=== PATIENT | male | born 1950 | race Caucasian/White ===

== ENCOUNTER 2017-09-09 08:20 | Outpatient (CLI) | payer MEDICARE ==
--- NOTE | 2017-09-09 11:21 | CT ---
CT OF HEAD WITH AND WITHOUT CONTRAST: INDICATION: Benign positional vertigo. FINDINGS: There is postoperative change involving the occiput with evidence of suboccipital craniectomy. There is encephalomalacia in the left frontal lobe. Ex vacuo dilatation of the ventricular system is pres ent. No intracranial hemorrhage or midline shift. There is no enhancing intraaxial mass. There is extraaxial dystrophic calcification overlying the inferolateral left frontal lobe. IMPRESSION: 1. No acute intracranial abnormality. 2. Postoperative change and encephalomalacia. Prominence of ventricular system is present which lik erma relates to ex vacuo dilatation given concomitant findings. 3. Dystrophic calcification, extraaxial in appearance overlying the lateral aspect of the inferior l eft frontal lobe. This could relate to partial calcification of a meningioma. POS: [place]
--- NOTE | 2017-09-09 11:23 | ULT ---
CAROTID DUPLEX SONOGRAM: History: Vascular disease. Dizziness. TIA. Carotid bruit. FINDINGS: Right: Minimal plaque. Color and spectral doppler evaluation, peak systolic velocity of 79 cm/sec and IC to CC ratio of 0.6 suggests no hemodynamically significant stenosis within the extracranial right ICA. Antegrade flow within the vertebral arteries. Left: Color and spectral doppler evaluation, peak systolic velocity of 65 cm/sec, and IC to CC ratio of 0.6 suggests no hemodynamically significant stenosis within the extracranial left ICA. Antegrade f low within the vertebral artery. IMPRESSION: Mild atherosclerosis. No sonographic evidence of significant extracranial ICA stenosis. POS: [facility]
== END 2017-09-09 08:21 | disposition home or self-care (01) ==
LOC: CT 08:20
PROVIDERS: ATTEND Obstetrics & Gynecology
DX: H81.10 Benign paroxysmal vertigo, unspecified ear (principal); R09.89 Other specified symptoms and signs involving the circulatory and respiratory systems; G93.89 Other specified disorders of brain; I70.90 Unspecified atherosclerosis; Z98.890 Other specified postprocedural states
CPT/HCPCS: 70470; 93880

== ENCOUNTER 2018-01-11 08:30 | Outpatient (CLI) | payer MEDICARE ==
--- NOTE | 2018-01-11 10:49 | MRI ---
RIGHT SHOULDER MRI WITHOUT IV CONTRAST: History: 67-year-old male with history of right shoulder pain for months following an injury. M75.101 FINDINGS: Multiplanar, multisequence MRI examination of the right shoulder is performed. Marked AC joint arthro sis changes are noted with some subchondral cystic changes and undersurface spurring of the distal cl avicle with depression of the supraspinatus myotendinous region with some fluid and fat stranding in the subacromial and subdeltoid bursa. There is downsloping of the anterior acromion and mild downslop ing of the lateral acromion. There is a fairly large undersurface high grade partial thickness tear of the anterior supraspinatus tendon with some delamination and some undersurface partial retraction with the tear extending into t he conjoined tendon. A possible small punctate full thickness component would be difficult to exclude . There is a very small focus of increased signal at the insertion of the conjoined tendon which appe ars to be interstitial and possibly concealed. There is some thickening and increased signal of the s ubscapularis tendon with what appears to be a delaminating tear. The biceps tendon appears to be some what subluxed at the level of the upper bicipital groove and has a somewhat split type appearance int raarticularly, particularly as it extends to the biceps anchor. In addition there is fairly extensive signal involving the anterior labrum extending somewhat anteriorly but also posteriorly, evidence fo r a slap tear. Rotator cuff muscles appear to be within normal limits in signal and volume. No significant abnormal marrow signal or acute osteochondral defect. IMPRESSION: Very high grade partial thickness undersurface and minimally delaminating tear of the supraspinatus t endon beginning anteriorly at the insertion and extending into the conjoined tendon to the level of t he magic angle with some partial thickness undersurface retraction. Small under surface delaminating tear of the subscapularis tendon. Probable mild subluxation of the biceps tendon of the upper bicipit al groove with a split type appearance intraarticularly extending to the biceps anchor as well as an extensive slap tear extending anteriorly and posteriorly. Severe AC joint arthrosis changes. POS: [facility]
== END 2018-01-11 08:31 | disposition home or self-care (01) ==
LOC: SCSMRI 08:30
PROVIDERS: ATTEND Orthopaedic Surgery
DX: M75.101 Unspecified rotator cuff tear or rupture of right shoulder, not specified as traumatic (principal); M19.011 Primary osteoarthritis, right shoulder

== ENCOUNTER 2018-03-02 06:15 | Outpatient (CLI) | payer MEDICARE ==
[2018-03-02 15:23] LABS: #Eosinphils 0.2 thou/uL (0.0-0.7); #Monocytes 0.6 thou/uL (0.11-0.59); #Neutrophils 5.6 thou/uL (1.40-6.50); %Basophils 0.3 % (0.0-1.0); %Eosinophils 2.3 % (0.0-10.0); %Lymphocytes 23.9 % (21.0-51.0); %Monocytes 6.6 % (0.0-10.0); %Neutrophils 66.9 % (42.0-75.0); Mean Corpuscular HGB CONC 33.9 g/dL (32.0-36.0); Mean Corpuscular Hemoglobin 29.8 pg (27.0-31.0); Mean Corpuscular Volume 87.8 fL (78.0-98.0); Mean Platelet Volume 7.9 fL (7.4-10.4); Platelet Count 265 thou/uL (130-400); RBC Distribution Width 11.8 % (11.5-14.5); Red Blood Cell (RBC) Count 5.71 mill/uL (4.70-6.10); White Blood Cell (WBC) Count 8.4 thou/uL (4.8-10.8)
[2018-03-02 15:44] LABS: Anion Gap 15 mmol/L (10-20); BUN (Urea Nitrogen) 25 mg/dL (8.4-25.7); Calc. Creatinine Clearance 0 mL/min (70-130); Calcium 9.7 mg/dL (7.8-10.44); Carbon Dioxide 22 mmol/L (23-31); Chloride 104 mmol/L (98-107); Estimated GFR-MDRD 60; Glucose 208 mg/dL (80-115); Potassium 4.1 mmol/L (3.5-5.1); Sodium 137 mmol/L (136-145)
== END 2018-03-02 06:16 | disposition home or self-care (01) ==
LOC: LABBT 06:15
PROVIDERS: ATTEND Orthopaedic Surgery
DX: Z01.818 Encounter for other preprocedural examination (principal); M75.101 Unspecified rotator cuff tear or rupture of right shoulder, not specified as traumatic
CPT/HCPCS: 80048; 85025; 93005; 93010

== ENCOUNTER → 2018-03-09 | Day surgery (SDC) | payer MEDICARE ==
[2018-03-02 14:04] VITALS: BMI 36.4
[~2018-03-09] MED LIST: CEFAZOLIN 2 GM/50 ML BAG ONE; Fentanyl 100 MCG/2 ML VIAL ONE; Fentanyl 100 MCG/2 ML VIAL SLOW IVP PRN; HYDROcodone/Acetaminophen 10/325 mg Tablet PO PRN; Ketorolac Tromethamine 30 MG/ML VIAL IVP SCH; Midazolam HCl 2 mg/2 ml Vial ONE; Ondansetron PF 4 MG/2 ML Vial IVP PRN; Ondansetron PF 4 MG/2 ML Vial ONE; PROPOFOL 200 MG/20 ML VIAL ONE; Promethazine HCl 25 MG/ML VIAL IM PRN; Ropivacaine 0.2% 550 ML 550 ML NERVE BLCK SCH; Ropivacaine 0.2% HCl/PF (40 MG/20 ML VIAL) ONE; Ropivacaine 0.5% HCl/PF (150 MG/30 ML VIAL) ONE; Zolpidem Tartrate 5 MG TAB PO PRN; ePHEDrine/0.9% NaCl/PF SYRINGE 50 mg/10 ml ONE; traMADol HCl 50 MG TAB PO PRN
--- NOTE | 2018-03-09 10:46 | OP ---
DATE OF PROCEDURE: 03/09/2018 PREOPERATIVE DIAGNOSES: Right rotator cuff tear and biceps subluxation with partial tearing. POSTOPERATIVE DIAGNOSIS: Right rotator cuff tear and biceps subluxation with partial tearing. PROCEDURES PERFORMED: Right arthroscopic subacromial decompression, arthroscopic rotator cuff repair, arthroscopic biceps tenodesis. 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 BLOOD LOSS: Minimal. SPECIMEN: None. DRAINS: None. COMPLICATIONS: None. DESCRIPTION OF PROCEDURE: The patient was taken to the operating room, where general anesthesia was induced. He was placed in a left lateral decubitus position. Right arm was placed in 15 pounds of traction, prepped and draped in usual sterile fashion. The scope was placed in the glenohumeral joint. He did not have any significant arthritis. His biceps was subluxed and unstable and SLAP tear. I tagged the biceps for later repair after debriding the labrum down to a stable rim. Scope was placed in the subacromial bursa. Bursectomy was performed. CA ligament was taken down and hemostasis was obtained. Rotator cuff was identified. The greater tuberosity was freshened. I placed corkscrew suture anchors through the greater tuberosity, passed suture through the rotator cuff and obtained a good watertight repair against bleeding bone. The biceps tendon was delivered into the subacromial space. I tagged it with a Krackow type stitch, measured to be size 8, repaired the drill site and drilled to 8 x 25 mm hole in the proximal humerus and repaired this using a Bio-tenodesis screw. Shoulder was then drained. Portals were closed with nylon suture. Sterile dressings were applied. Job ID: [id number]
== END ==
LOC: SDC 05:28
PROVIDERS: ATTEND Orthopaedic Surgery
PROC: 0LQ14ZZ Repair Right Shoulder Tendon, Percutaneous Endoscopic Approach (ICD-10-PCS; principal; 2018-03-09)
PROC: 0RHJ44Z Insertion of Internal Fixation Device into Right Shoulder Joint, Percutaneous Endoscopic Approach (ICD-10-PCS; 2018-03-09)
PROC: 0LS14ZZ Reposition Right Shoulder Tendon, Percutaneous Endoscopic Approach (ICD-10-PCS; 2018-03-09)
PROC: 0RNJ4ZZ Release Right Shoulder Joint, Percutaneous Endoscopic Approach (ICD-10-PCS; 2018-03-09)
DX: M75.111 Incomplete rotator cuff tear or rupture of right shoulder, not specified as traumatic (principal); S46.211A Strain of muscle, fascia and tendon of other parts of biceps, right arm, initial encounter; S43.491A Other sprain of right shoulder joint, initial encounter; M25.311 Other instability, right shoulder; E78.5 Hyperlipidemia, unspecified; Z79.899 Other long term (current) drug therapy; Z88.5 Allergy status to narcotic agent
CPT/HCPCS: 29826; 29827; 29828; 97139; A4306; C1713; J2250; J2405; J2704; J2795; J3010

== ENCOUNTER 2018-08-04 13:02 | Outpatient (CLI) | payer MEDICARE ==
--- NOTE | 2018-08-04 16:11 | MRI ---
MRI LEFT KNEE: 08/04/18 PROVIDED CLINICAL HISTORY: Knee pain status post injury. FINDINGS: The anterior cruciate ligament, posterior cruciate ligament, medial collateral ligament and lateral c ollateral ligamentous complex demonstrate an intact MR appearance, as does the extensor mechanism. The medial and lateral menisci demonstrate no evidence for tear. No focal articular cartilage defect is apparent. There is conspicuous marrow edema within the lateral femoral condyle with subtle flattening of the co rtical bone of the posterior central weightbearing portions of the lateral femoral condyle, compatibl e with subchondral insufficiency fracture. Regional marrow signal appears otherwise normal. There is a small knee joint effusion with mild Bloom 's cyst. IMPRESSION: 1. Findings compatible with subchondral insufficiency fracture involving the lateral femoral con dyle. 2. Small knee joint effusion with Bloom's cyst. POS: [facility]
== END 2018-08-04 13:03 | disposition home or self-care (01) ==
LOC: SCSMRI 13:02
PROVIDERS: ATTEND Orthopaedic Surgery
DX: M25.562 Pain in left knee (principal); M25.462 Effusion, left knee; M71.22 Synovial cyst of popliteal space [Baker], left knee

== ENCOUNTER 2021-10-24 19:05 | Emergency (ER) | payer OTHER, MEDICARE ==
[~2021-10-24 19:05] MED LIST changes: -CEFAZOLIN 2 GM/50 ML BAG ONE; -Fentanyl 100 MCG/2 ML VIAL ONE; -Fentanyl 100 MCG/2 ML VIAL SLOW IVP PRN; -HYDROcodone/Acetaminophen 10/325 mg Tablet PO PRN; +Iopamidol 370 76% 100 ML VIAL ONE; -Ketorolac Tromethamine 30 MG/ML VIAL IVP SCH; -Midazolam HCl 2 mg/2 ml Vial ONE; -Ondansetron PF 4 MG/2 ML Vial IVP PRN; -Ondansetron PF 4 MG/2 ML Vial ONE; -PROPOFOL 200 MG/20 ML VIAL ONE; -Promethazine HCl 25 MG/ML VIAL IM PRN; -Ropivacaine 0.2% 550 ML 550 ML NERVE BLCK SCH; -Ropivacaine 0.2% HCl/PF (40 MG/20 ML VIAL) ONE; -Ropivacaine 0.5% HCl/PF (150 MG/30 ML VIAL) ONE; -Zolpidem Tartrate 5 MG TAB PO PRN; -ePHEDrine/0.9% NaCl/PF SYRINGE 50 mg/10 ml ONE; -traMADol HCl 50 MG TAB PO PRN
[2021-10-24] MEDS ORDERED: Bacitracin 1 PK ONE (19:25)
[2021-10-24] MEDS ORDERED: Boostrix 0.5 ML (Tdap) VIAL ONE (19:25)
[2021-10-24] MEDS ORDERED: Lidocaine 1% PF 5 ML VIAL ONE (19:27)
[2021-10-24] MEDS ORDERED: Lidocaine 2% PF 5 ML VIAL ONE (19:27)
[2021-10-24 19:36] LABS: #Eosinphils 0.2 thou/uL (0.0-0.7); #Lymphocytes 2.3 thou/uL (1.20-3.40); #Monocytes 0.5 thou/uL (0.11-0.59); #Neutrophils 5.9 thou/uL (1.40-6.50); %Basophils 0.4 % (0.0-1.0); %Eosinophils 1.7 % (0.0-10.0); %Lymphocytes 26.1 % (21.0-51.0); %Monocytes 5.3 % (0.0-10.0); %Neutrophils 66.5 % (42.0-75.0); Hemoglobin 16.4 g/dL (14.0-18.0); Mean Corpuscular HGB CONC 33.9 g/dL (32.0-36.0); Mean Corpuscular Hemoglobin 30.7 pg (27.0-31.0); Mean Corpuscular Volume 90.6 fL (78.0-98.0); Mean Platelet Volume 7.4 fL (7.4-10.4); Platelet Count 232 thou/uL (130-400); RBC Distribution Width 11.3 % (11.5-14.5); Red Blood Cell (RBC) Count 5.33 mill/uL (4.70-6.10); White Blood Cell (WBC) Count 8.9 thou/uL (4.8-10.8)
[2021-10-24 19:58] LABS: ALT (SGPT) 35 U/L (8-55); AST (SGOT) 22 U/L (5-34); Albumin 4.2 g/dL (3.4-4.8); Alcohol Less than 10 mg/dL (Less than 10); Alkaline Phosphatase 60 U/L (40-110); Anion Gap 15 mmol/L (10-20); BUN (Urea Nitrogen) 22 mg/dL (8.4-25.7); Bilirubin, Total 0.7 mg/dL (0.2-1.2); Calc. Creatinine Clearance 0 mL/min (70-130); Calcium 9.2 mg/dL (7.8-10.44); Carbon Dioxide 27 mmol/L (23-31); Chloride 101 mmol/L (98-107); Estimated GFR 69; Globulin 2.9 g/dL (2.4-3.5); Glucose 193 mg/dL (83-110); Potassium 4.1 mmol/L (3.5-5.1); Protein, Total 7.1 g/dL (5.8-8.1); Sodium 139 mmol/L (136-145)
== END 2021-10-24 22:43 | disposition home or self-care (01) ==
LOC: ERS 19:05
DX: S01.01XA Laceration without foreign body of scalp, initial encounter (principal); Z87.891 Personal history of nicotine dependence; V89.2XXA Person injured in unspecified motor-vehicle accident, traffic, initial encounter
CPT/HCPCS: 12031; 70450; 71260; 72125; 74177; 80053; 80307; 84484; 85025; 90471; 90715; 93005; G0390; J2001; Q9967